=== PATIENT | female | born 2000 | race Caucasian/White ===

== ENCOUNTER 2021-09-10 22:55 | Inpatient (IN) | payer OTHER ==
[2021-09-11] MEDS ORDERED: DEXTROSE 5%-LACTATED RINGERS 1,000 ML IV SCH
[2021-09-11 00:40] LABS: BASO % 0.2 % (0-2.0); EOS % 0.9 % (0-4.5); HEMATOCRIT 31.7 % (32.4-45.2); HEMOGLOBIN 10.9 GM/dL (10.7-15.3); LYMPH % 24.9 % (8-40); MCH 27.8 pg (25.7-33.7); MCHC 34.3 g/dl (32.0-36.0); MEAN PLT VOLUME 8.3 fl (7.5-11.1); MONO % 4.4 % (3.8-10.2); NEUT % 69.6 % (42.8-82.8); PLATELET COUNT 258 10^3/uL (134-434); RBC 3.92 M/mm3 (3.60-5.2); RDW 14.7 % (11.6-15.6); WHITE BLOOD COUNT 8.7 K/mm3 (4.0-10.0)
[2021-09-11 00:51] VITALS: BMI 42.7
[2021-09-11 01:03] LABS: BLOOD UREA NITROGEN 11.5 mg/dL (7-18)
[2021-09-11 01:06] LABS: CREATININE 0.8 mg/dL (0.55-1.3)
[2021-09-11 01:25] LABS: INR 0.99 (0.83-1.09); PROTHROMBIN TIME (PATIENT) 11.6 SEC (9.7-13.0)
[2021-09-11 01:27] LABS: ACTIVATED PTT 24.2 SECONDS (25.2-36.5)
[2021-09-11 02:58] LABS: HIV INTERPRETATION NEGATIVE (NEGATIVE)
[2021-09-11] MEDS ORDERED: OXYTOCIN 20 UNITS in 0.9% NS 40 UNIT/2,000 ML INFUS.BAG IV ONE (08:19)
[2021-09-11] MEDS ORDERED: morphine SULFATE/PF 1 MG/2 ML (2cc Syringe - QUVA) ONE (08:20)
[2021-09-11] MEDS ORDERED: ELECTROLYTE-148 SOLN 500 ML IV ONE (08:21)
[2021-09-11] MEDS ORDERED: CITRIC ACID/SODIUM CITRATE 30 ML UNIT-DOSE CUP PO ONE (08:21)
[2021-09-11] MEDS ORDERED: ePHEDrine SULFATE 50 MG/1 ML AMPULE ONE (08:21)
[2021-09-11] MEDS ORDERED: IBUPROFEN 800 MG/8 ML IJ IVPB PRN (08:25)
[2021-09-11] MEDS ORDERED: SENNOSIDES/DOCUSATE COMBO (SENNA PLUS) TABLET (UD) PO PRN (08:25)
[2021-09-11] MEDS ORDERED: METHYLERGONOVINE MALEATE 0.2 MG/1 ML AMP IM PRN (08:25)
[2021-09-11] MEDS ORDERED: OXYTOCIN 20 UNITS in 0.9% NS 20 UNIT/1,000 ML INFUS.BAG IV SCH (08:30)
[2021-09-11] MEDS ORDERED: ELECTROLYTE-148 SOLN 1,000 ML IV SCH (08:30)
[2021-09-11] MEDS ORDERED: ONDANSETRON 4 MG/2 ML VIAL ONE (08:39)
[2021-09-11] MEDS ORDERED: OXYTOCIN 10 UNITS/ML VIAL ONE (09:00)
[2021-09-11] MEDS ORDERED: KETOROLAC TROMETHAMINE 30 MG/1 ML VIAL ONE (09:10)
[2021-09-11] MEDS ORDERED: DEXAMETHASONE SOD PHOSPHATE 4 MG/1 ML VIAL ONE (09:10)
[2021-09-11] MEDS ORDERED: PHENYLEPHRINE HCL 10 MG/1 ML SINGLE DOSE VIAL ONE (09:11)
[2021-09-11] MEDS ORDERED: ONDANSETRON 4 MG/2 ML VIAL IVPUSH PRN (09:53)
[2021-09-11] MEDS ORDERED: morphine SULFATE/PF 1 MG/2 ML (2cc Syringe - QUVA) EP ONE (09:53)
[2021-09-11] MEDS: PRENATAL VITAMINS W/ FOLIC ACID TABLET (FP) PO SCH (10:59)
[2021-09-11] MEDS ORDERED: IBUPROFEN 800 MG/8 ML IJ IVPB ONE (11:11)
[2021-09-11] MEDS ORDERED: oxyCODONE HCL 5 MG TABLET PO PRN (20:25)
[2021-09-11] MEDS: oxyCODONE HCL 5 MG TABLET PO PRN (21:49)
[2021-09-12] MEDS: oxyCODONE HCL 5 MG TABLET PO PRN (02:40)
[2021-09-12 07:35] LABS: BASO % 0.2 % (0-2.0); EOS % 0.4 % (0-4.5); HEMATOCRIT 27.4 % (32.4-45.2); HEMOGLOBIN 9.4 GM/dL (10.7-15.3); LYMPH % 28.1 % (8-40); MCH 28.1 pg (25.7-33.7); MCHC 34.4 g/dl (32.0-36.0); MEAN CELL VOLUME 81.8 fl (80-96); MEAN PLT VOLUME 8.5 fl (7.5-11.1); MONO % 4.8 % (3.8-10.2); NEUT % 66.5 % (42.8-82.8); PLATELET COUNT 236 10^3/uL (134-434); RBC 3.35 M/mm3 (3.60-5.2); RDW 14.4 % (11.6-15.6); WHITE BLOOD COUNT 12.3 K/mm3 (4.0-10.0)
[2021-09-12] MEDS ORDERED: BISACODYL 10 MG SUPP.RECT RC PRN (08:25)
[2021-09-12] MEDS: IBUPROFEN 600 MG TABLET (FP) PO PRN ×3 (09:03→22:48)
[2021-09-12] MEDS: SIMETHICONE 80 MG TAB.CHEW (FP) PO PRN ×3 (09:03→22:48)
[2021-09-12] MEDS: PRENATAL VITAMINS W/ FOLIC ACID TABLET (FP) PO SCH (09:04)
[2021-09-13] MEDS: IBUPROFEN 600 MG TABLET (FP) PO PRN ×2 (07:03→17:34)
[2021-09-13] MEDS: SIMETHICONE 80 MG TAB.CHEW (FP) PO PRN ×2 (07:03→17:35)
[2021-09-13] MEDS: PRENATAL VITAMINS W/ FOLIC ACID TABLET (FP) PO SCH (09:35)
[2021-09-13] MEDS: ACETAMINOPHEN 325 MG TABLET (FP) PO PRN (09:35)
[2021-09-14] MEDS: IBUPROFEN 600 MG TABLET (FP) PO PRN (02:56)
[2021-09-14] MEDS: SIMETHICONE 80 MG TAB.CHEW (FP) PO PRN (02:56)
[2021-09-14] MEDS: ACETAMINOPHEN 325 MG TABLET (FP) PO PRN (05:22)
[2021-09-14] MEDS: PRENATAL VITAMINS W/ FOLIC ACID TABLET (FP) PO SCH (11:00)
[2021-09-14 16:32] VITALS: BP 128/74; PULSE 88; TEMP 98
== END 2021-09-14 15:20 | disposition home or self-care (01) | DRG 788 ==
LOC: JDEL 22:55 → JLDR 23:30 → J3W 09-11 11:55
PROVIDERS: ADMIT Obstetrics & Gynecology; ATTEND Obstetrics & Gynecology
PROC: 10D00Z1 Extraction of Products of Conception, Low, Open Approach (ICD-10-PCS; principal; 2021-09-11)
DX: O32.2XX0 Maternal care for transverse and oblique lie, not applicable or unspecified (principal); O99.213 Obesity complicating pregnancy, third trimester; Z3A.38 38 weeks gestation of pregnancy; Z37.0 Single live birth
CPT/HCPCS: 36415; 80048; 85025; 85610; 85730; 86780; 86850; 86900; 86901; 87389; 88307-TC; C9803; U0003; U0005